=== PATIENT | female | born 1945 | race Caucasian/White ===

== ENCOUNTER 2023-09-30 11:11 | Emergency (ER) | payer OTHER, SELFPAY ==
[2023-09-30 11:14] VITALS: BP 198/113
[2023-09-30 11:36] VITALS: BP 170/86
--- NOTE | 2023-09-30 13:02 | ED.GENMED ---
History of Present Illness
General
Chief Complaint: Dental Problem
Source: patient
Exam Limitations: none
Time Seen by Provider: 09/30/23 11:36
Nursing documentation reviewed up to this point in time: agreed with
Travel History
Have you had any contact with someone who has COVID-19?: No
Do you have any symptoms of coronavirus? Fever > 100 degrees, chills, cough, shortness of breath, sore throat, loss of taste or smell, muscle aches, or headache?: No
History of Present Illness
History of Present Illness:
78-year-old female with no past medical history has a firm mildly tender lump at the base of her lower left tooth #22. Noticed it 8 days ago. 'Not too painful,' has been able to eat without pain. Saw dentist yesterday and referred to dental surgeon
as xrays show no dental infection per pt. She has appt with dental surgeon in 3 days. she is here because the dentist 'scared me to ' and told me to come to ER if it gets bigger, although she denies any of these: she is afraid it will grow
while she's sleeping and spread to other areas of her mouth and affect her breathing and swallowing.
Denies fever.
Past History
Past History
ED Past Medical History: None
ED Past Surgical History: None
Social History
Tobacco: Non-smoker
Alcohol: None
Personal:
Living: with family
Review of Systems
Review of Systems
Allergies reviewed?: Yes
All Other Systems: ROS reviewed and negative except as documented in HPI and ROS
Constitutional: Denies fever
EENT: Reports other (lump left lower gum)
Musculoskeletal: Denies neck pain
Phy Exam
Physical Exam
Physical Exam:
GENERAL: No acute distress. A&Ox3.
CONSTITUTIONAL: Afebrile.
Neck: Supple, no lymphadenopathy
ENMT: moist mucus membranes, Pharynx nl, local small pea sized minimally tender firm, non mobile lump in outer gum below tooth #22 L lower jaw. No abscess. No surrounding swelling. Full ROM of jaw. No other intraoral lesions
RESPIRATORY: Regular respirations, nonlabored, lungs clear.
CARDIOVASCULAR: Regular rate and rhythm, no murmurs, no rubs.
MUSCULOSKELETAL: Moves with ease. Well perfused.
SKIN: Warm, dry, pink
PSYCH: Normal mood and affect. Well kept, interactive and appropriate
NEUROLOGIC: Awake, alert and oriented. No focal neurological deficits
Course
Vital Signs
Initial and Last Documented VS:
Initial Vital Signs
Temp Pulse Resp BP Pulse Ox
97.8 F 84 18 198/113 98
09/30/23 11:14 09/30/23 11:14 09/30/23 11:14 09/30/23 11:14 09/30/23 11:14
Last Documented Vital Signs
Temp Pulse Resp BP Pulse Ox
97.8 F 80 18 172/86 98
09/30/23 11:14 09/30/23 13:25 09/30/23 13:25 09/30/23 13:25 09/30/23 13:25
MDM/Problems Addressed
Differential Diagnosis Includes:
cyst gum, abscess
MDM/Problems Addressed:
78-year-old female with no past medical history has a firm mildly tender lump at the base of her lower left tooth #22. Noticed it 8 days ago. 'Not too painful,' has been able to eat without pain. Saw dentist yesterday and referred to dental surgeon
as xrays show no dental infection per pt. She has appt with dental surgeon in 3 days. she is here because the dentist 'scared me to ' and told me to come to ER if it gets bigger, although she denies any of these: she is afraid it will grow
while she's sleeping and spread to other areas of her mouth and affect her breathing and swallowing.
Denies fever.
Pt has local small pea sized minimally tender firm, non mobile lump in outer gum below tooth #22 L lower jaw. Consistent with a cyst, no fluctuance or significant pain, not consistent with abscess
She will f/u with oral surgeon, most likely needs to be excised.
Reassured pt this is LOCALIZED and no chance of spreading, causing obstruction to breathing, she felt much better after discussion
*Critical Care Note
Total Time (30-74mins, 75-104mins- exclusive of procedures): Not Applicable
ED Attending Note
-
Portions of this chart may have been created with voice recognition software.� Occasional wrong word or��sound alike� substitutions may have occurred due to the inherent limitations of voice recognition software.
Discharge Plan
Departure
Patient Disposition: Home (Routine Discharge)
Date of Disposition: 09/30/23
Time of Disposition: 13:10
Patient with high blood pressure during this ER visit?: No
Condition: Good
Discharge Problem:
Gingival cyst
Instructions: Epidermal Cyst
Referrals:
Your, dental surgeon [Other] - Keep scheduled appt
Joseph Xie, DO [Family Provider] -
Activity Restrictions/Additional Instructions:
As we discussed, there is nothing worrisome in your exam today.
The area is localized and should not spread to any other areas. This may be a cyst that has to be surgically removed.
Keep your appointment with your dental surgeon this coming week.
Interventions
Interventions:
*Risk Screen - Suicide Last Done: 09/30/23 11:14
*General Assessment Last Done: 09/30/23 11:14
*Neglect/Abuse Screening Last Done: 09/30/23 11:14
ED- Fall Risk Assessment Last Done: 09/30/23 11:45
*ED COVID-19 Vaccine History Last Done: 09/30/23 11:34
*Nursing Disposition Last Done: 09/30/23 13:25
Discharge Date and Time
Discharge Date/Time: 09/30/23 13:25
Print Language: URDU
--- NOTE | 2023-09-30 13:20 | EDRN ---
Reviewed discharge instructions with patient. Verbalized understanding. Ambulated with steady gait to the lobby.
[2023-09-30 13:25] VITALS: BP 172/86
[2023-09-30 13:56] VITALS: BP 172/86
== END 2023-09-30 13:25 | disposition home or self-care (01) ==
LOC: EMR 11:11
PROVIDERS: EMERGENCY PHYSICIAN Emergency Medicine; FAMILY PHYSICIAN Family Medicine
DX: K09.9 Cyst of oral region, unspecified (principal)
CPT/HCPCS: 99282

== ENCOUNTER → 2024-01-29 06:26 | Day surgery (SDC) | payer OTHER, SELFPAY | LOC: GI 06:26 | PROVIDERS: ATTENDING PHYSICIAN Internal Medicine | DX: Z12.11 Encounter for screening for malignant neoplasm of colon (principal); K57.30 Diverticulosis of large intestine without perforation or abscess without bleeding; K63.89 Other specified diseases of intestine; Z86.010 Personal history of colon polyps | CPT/HCPCS: G0105 ==

== ENCOUNTER → 2024-05-01 14:48 | Outpatient (REF) | payer OTHER, SELFPAY | LOC: HWWDC 14:48 | PROVIDERS: ATTENDING PHYSICIAN Obstetrics & Gynecology; FAMILY PHYSICIAN Family Medicine | DX: Z12.31 Encounter for screening mammogram for malignant neoplasm of breast (principal) | CPT/HCPCS: 77063; 77067 ==

== ENCOUNTER 2024-08-19 22:12 | Inpatient (IN) | payer OTHER, SELFPAY ==
[2024-08-19 16:54] VITALS: BP 188/105
[2024-08-19 17:17] LABS: % Basophils 0.5 % (0-2); % Eosinophils 1.4 % (0-6); % Immature Granulocytes 0.6 % (0-0.5); % Neutrophils 74.5 % (42.2-75.2); Absolute Eosinophils 0.1 10^3/uL (0-0.7); Absolute Immature Granulocytes 0.1 10^3/uL (0-0.05); Absolute Lymphocytes 1.3 10^3/uL (1.2-3.4); Absolute Monocytes 0.7 10^3/uL (0.1-0.6); Absolute Neutrophils 6.2 10^3/uL (1.4-6.5); Hematocrit 39.8 % (37.0-47.0); Hemoglobin 13.7 g/dL (12.0-16.0); Mean Corp Hgb Conc. 34.4 g/dL (33.0-37.0); Mean Corpuscular Hgb 29.5 pg (27.0-31.0); Mean Corpuscular Volume 85.8 fL (81.0-99.0); Mean Platelet Volume 8.7 fL (7.4-10.4); Nucleated Red Blood Cells % 0 %; Platelet Count 255 10^3/uL (130-400); Red Blood Cell Count 4.64 10^6/uL (4.20-5.40); Red Cell Dist. Width 13.7 % (11.5-14.5); White Blood Cell Count 8.3 10^3/uL (4.8-10.8)
[2024-08-19 17:37] LABS: ALT (SGPT) 27 U/L (0-35); AST (SGOT) 30 U/L (14-36); Albumin 4.7 g/dl (3.5-5.0); Alkaline Phosphatase 108 U/L (38-126); Blood Urea Nitrogen 16 mg/dl (7-17); Calcium 10.4 mg/dl (8.4-10.2); Carbon Dioxide 25 mmol/L (22-30); Chloride 98 mmol/L (98-107); Glucose 100 mg/dl (70-99); Potassium 4.4 mmol/L (3.5-5.1); Sodium 134 mmol/L (135-145); Total Bilirubin 1.2 mg/dl (0.2-1.3); Total Protein 7.4 g/dl (6.3-8.2); eGFR > 60.00
[2024-08-19 17:50] LABS: NT-proBNP 638 pg/ml; Troponin I 0.149 ng/ml
[2024-08-19 18:22] VITALS: BP 196/77
[2024-08-19 19:00] VITALS: BP 196/90
--- NOTE | 2024-08-19 19:10 | ED.GENMED ---
History of Present Illness
General
Chief Complaint: Cardiac Symptoms
Source: patient and family
Time Seen by Provider: 08/19/24 18:06
History of Present Illness
History of Present Illness:
This is 79-year-old female presents with dyspnea on exertion has been ongoing for about 6 weeks. The patient states that she has had progressive shortness of breath worse over the last few days. Went to see her PCP was not happy with the way her
EKG looked. Patient is somewhat irritated that she is here as she states she feels fine at rest. She specifically denies chest pain. No leg swelling. No fevers. No cough. No recent travel. Daughter however does state that they had a drive to
febrile 6 hours in June and in July. Patient is otherwise healthy
Past History
Past History
ED Past Medical History: None
ED Past Surgical History: None
Social History
Tobacco: Non-smoker
Alcohol: None
Personal:
Living: with family
Phy Exam
Physical Exam
Physical Exam:
CONSTITUTIONAL Patient alert and oriented to person, place and time. Well-appearing. Vital signs reviewed.
HEAD atraumatic, normocephalic.
EYES eyelids normal to inspection, Extraocular muscles intact, Conjunctiva normal, Sclera normal.
NECK normal range of motion, Trachea midline, no jugular venous distention.
RESPIRATORY CHEST No respiratory distress noted, Chest expansion equal, Bilateral breath sounds clear.
CARDIOVASCULAR regular rate and rhythm, Heart sounds normal.
ABDOMEN abdomen nontender, Bowel sounds normal. No distention.
BACK normal inspection, no obvious deformities
UPPER EXTREMITY range of motion normal, Motor strength normal, no cyanosis, no edema.
LOWER EXTREMITY range of motion normal, Motor strength normal, no cyanosis, no edema.
NEURO Speech normal, No focal motor deficits, Iker coma scale 15, Memory normal, Cranial Nerves intact to screening exam.
SKIN skin warm, dry, and normal in color.
Course
Orders/Labs/Results
Orders:
Orders
08/19/24 16:40
EKG [Electrocardiogram (*1)] Urgent
Reason for Study: Abnormal EKG
EKG- Treatment ONCE
08/19/24 17:05
Complete Blood Count/With Diff Urgent
Comprehensive Metabolic Panel Urgent
NT-proBNP Urgent
Troponin I Urgent
08/19/24 18:17
CT Chest PE Study Urgent
Comment:
Reason For Exam: dyspnea, elevated trop
08/19/24 19:18
PTT Urgent
Comment: Obtain baseline before beginning heparin infusion if not already collected
Heparin 6,000 units IV NOW STA
Pharmacy Request to Place See Dose Instructions PO NOW STA
Discontinue all Active Warfarin orders?: Yes
Nursing to Place Non Medication Order As Directed
Physician Order: PTT 6 hours after initial start of Heparin infusion
08/19/24 19:30
Heparin INFUSION titrate rate - CONTINUOUS Heparin 86010 Units/250 ml 25,000 units in 250 ml IV PER PROTOCOL
Weight to be used for heparin protocol in kilograms (kg):: 75.438
Protocol:: DVT/PE
PTT Goal Range to be used:: PTT 73 to 111 seconds
Order type:: Initial
INITIAL Infusion Dose (UNITS/KG/hr) & then follow protocol:: 18 units/kg/hr
Infusion Dose in UNITS/hr & then follow protocol (UNITS/hr):: 1,400
INFUSION RATE in mL/hr & then follow protocol (mL/hr):: 14
For DVT/PE algorithm, re-bolus for low PTT?: Yes
PTT less than or equal to 64 seconds:: Re-bolus 80 units/kg (max 10,000units). Increase by 300 units/hr
(+ 3mL/hr)
PTT 64.1 to 72.9 seconds:: Re-bolus 40 units/kg (max 5,000 units). Increase by 200 units/hr
(+ 2mL/hr)
PTT 73 to 111 seconds:: Target Range. No change in rate.
PTT 111.1 to 130.9 seconds:: Decrease rate by 200 units/hr (- 2 mL/hr)
PTT 131 to 199.9 seconds:: HOLD for 1 hr. Then decrease by 200 units/hr (- 2mL/hr)
PTT greater than or equal to 200 seconds:: HOLD for 2 hrs & Notify Provider. Then decrease by 300 units/hr
(- 3mL/hr)
Lab follow-up:: Each change, PTT q6h until 2 consecutive are therapeutic. Then
PTT daily.
08/19/24 20:[address] See Dose Instructions IV DIRECTED
Abnormal Lab Results
08/19/24
17:05
Abs Immat Gran (auto) 0.1 H 10^3/uL
(0-0.05)
Absolute Monos (auto) 0.7 H 10^3/uL
(0.1-0.6)
Immature Gran % 0.6 H %
(0-0.5)
Lymphocytes % 15.0 L %
(20.5-51.1)
Sodium 134 L mmol/L
(135-145)
Glucose 100 H mg/dl
(70-99)
Calcium 10.4 H mg/dl
(8.4-10.2)
Troponin I 0.149 H* ng/ml
08/19/24 17:05
08/19/24 17:05
Vital Signs
Initial and Last Documented VS:
Initial Vital Signs
Temp Pulse Resp BP Pulse Ox
98.4 F 93 18 188/105 97
08/19/24 16:54 08/19/24 16:54 08/19/24 16:54 08/19/24 16:54 08/19/24 16:54
Last Documented Vital Signs
Temp Pulse Resp BP Pulse Ox
98.4 F 89 25 196/77 97
08/19/24 16:54 08/19/24 18:30 08/19/24 18:30 08/19/24 18:22 08/19/24 16:54
MDM/Problems Addressed
Differential Diagnosis Includes:
Acute coronary syndrome, pulmonary embolism, pericardial effusion, pneumothorax, pneumonia, CHF, valvulopathy
MDM/Problems Addressed:
Bilateral pulmonary emboli with right heart strain
*Radiology
Radiology exam reviewed: preliminary read by ED provider (Bilateral PE)
*Pulse Oximetry
Patient hypoxic: no
*EKG
Interpreted by ED Provider?: Yes
Interpretation: abnormal
Rate: normal
Rhythm: sinus
QRS Pattern: normal QRS
Ischemia: other (S1, Q3, T3)
*Sports Agent Interpretation
Rate: normal
Interpretation: normal
Rhythm: sinus
*Critical Care Note
Total Time (30-74mins, 75-104mins- exclusive of procedures): 40 minutes
Data Reviewed
Source: patient and family
Patient Management
Discussion with other providers: Hospitalist and Radiologist (Case discussed with radiology who agrees with bilateral PEs)
Escalation/DeEscalation of care consider admission/obs:
79-year-old female with progressive dyspnea on exertion. Elevated troponin. Given EKG and elevated troponin CTA was ordered which does confirm bilateral pulmonary emboli. Currently very stable. The patient is happy and smiling in the room with a
heart rate of 96 and a pulse ox that is normal. Blood pressure is slightly hypertensive but otherwise unremarkable. Admit. Heparin drip.
ED Attending Note
-
Portions of this chart may have been created with voice recognition software.� Occasional wrong word or��sound alike� substitutions may have occurred due to the inherent limitations of voice recognition software.
Discharge Plan
Departure
Patient Disposition: Admit
Date of Disposition: 08/19/24
Time of Disposition: 19:10
Admit to: Telemetry
Presentation/result/management discussed w/ accepting MD/DO: Hospitalist
Discharge Problem:
Bilateral pulmonary embolism, right heart strain
Referrals:
Joseph Xie, [Family Provider] -
Interventions
Interventions:
*Risk Screen - Suicide Last Done: 08/19/24 18:48
*Neglect/Abuse Screening Last Done: 08/19/24 18:48
*ED COVID-19 Vaccine History Last Done: 08/19/24 18:48
ED- Pulmonary Assessment Last Done: 08/19/24 18:25
ED- Cardiac Assessment Last Done: 08/19/24 18:25
Discharge Date and Time
Print Language: KINYARWANDA
[2024-08-19 19:16] VITALS: BMI 27.7
[2024-08-19 19:45] LABS: APTT 24.1 Sec (23.4-35.0)
[2024-08-19] MEDS: HEPARIN 6000 UNITS IV (19:45)
[2024-08-19] MEDS: HEPARIN 25000 UNITS/250 ML IV (19:46)
--- NOTE | 2024-08-19 19:50 | HPS.HSE ---
Family Physician
-
Family Physician: Joseph Xie
Chief Complaint
-
Dyspnea on Exertion
History of Present Illness
Patient is a 71-year-old female past medical history of hypertension, and hyperlipidemia who presents with dyspnea on exertion. Patient reports increasing dyspnea on exertion for the last 4 to 6 weeks. She notes shortness of breath while walking
up the stairs. She notes that initially resolved quickly with rest. However, today symptoms were much worse. She contacted her PCP who instructed her to come to the emergency department for evaluation. Patient's workup was positive for bilateral
pulmonary emboli. She denies chest pain, palpitations or dizziness. She notes a few long car rides over the last few months with multiple 5-hour trips to [place].
Medical History
Past Medical History
Past Medical History: Reports Other
Additional Past Medical History:
Essential Hypertension
Hyperlipidemia
Past Surgical History: Reports None
Social History
Tobacco: Non-smoker
Alcohol: Occasional
Family History
Family History: Not pertinent
Allergies / Home Medications
Allergies reflects when Allergies were last updated in [facility].
Home Medications with original date entered in [facility]
Allergy/Medication List:
Allergies
Allergy/AdvReac Type Severity Reaction Status Date / Time
No Known Allergies Allergy Verified 09/30/23 11:18
Home Medications
aspirin 81 mg chewable tablet 81 mg PO MOWEFR 08/19/24
lisinopril 20 mg tablet 20 mg PO DAILY 08/19/24
rosuvastatin 10 mg tablet 10 mg PO DAILY 08/19/24
therapeutic multivitamin 1 tab PO DAILY 08/19/24
Review of Systems
-
A 12 point ROS was completed and negative except as noted: Yes
Constitutional: Denies Fever or Chills
Respiratory: Denies Cough or Trouble Breathing
Cardiac: Denies Chest Pain or Palpitations
Abdomen/GI: Denies Abdominal Pain, Nausea, Vomiting or Diarrhea
Physical Exam
Vital Signs
Vital Signs
Temp Pulse Resp BP Pulse Ox
98.4 F 89 25 196/77 97
08/19/24 16:54 08/19/24 18:30 08/19/24 18:30 08/19/24 18:22 08/19/24 16:54
Physical Exam
General: Comfortable and Conversant
HEENT: Anicteric and Moist mucous membranes
Respiratory: Clear and Non Labored Respirations
Cardiac: S1/S2 and Regular Rhythm; No Tachycardia
GI: Soft and Non Tender
Rectal: Deferred by Provider
Genito-urinary: No Maurice
Musculoskeletal: No Clubbing, No Cyanosis and Other (Trace edema right lower extremity)
Skin: Warm and Dry
Neuro: Awake, Alert, Oriented and Nonfocal/grossly intact
Psych: Calm
Laboratory Results
-
08/19/24 17:05
08/19/24 17:05
Laboratory Results
APTT 24.1 Sec (23.4-35.0) 08/19/24 19:21
Total Bilirubin 1.2 mg/dl (0.2-1.3) 08/19/24 17:05
AST 30 U/L (14-36) 08/19/24 17:05
ALT 27 U/L (0-35) 08/19/24 17:05
Alkaline Phosphatase 108 U/L (38-126) 08/19/24 17:05
Troponin I 0.149 ng/ml H* 08/19/24 17:05
Data Reviewed
-
CT Scan: Report Reviewed by me
Lab Data: Labs Reviewed by me
Impression/Plan
-
Sub-Massive Bilateral Pulmonary Emboli
-Consult Pulmonary
-Check Echo
-Check lower extremity venous ultrasound
-Continue heparin drip
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
-Continue to trend troponin
Essential Hypertension, Uncontrolled
-Continue lisinopril
-Add hydralazine PRN
Hyperlipidemia
-Continue rosuvastatin
Code Status: Full Code
[2024-08-19 20:00] VITALS: BP 192/92
--- NOTE | 2024-08-19 20:11 | W.PN.UPDATE ---
Update Note
Progress Note Update
Patient seen in conjunction with ANIMAL PATHOLOGIST. I do depends on history and physical. I concur with assessment and plan.
This is a 79-year-old female with past medical history that and can fall hypertension hyperlipidemia will also takes daily aspirin, presenting to the emergency department with worsening dyspnea on exertion over the last few months. She saw PMD
today who did an x-ray and was concerned about the finding Maximen as to the Emergency Department given ongoing symptoms of dyspnea on exertion.
Patient is unclear about stated that this man exertion has been going on for few months. She reports no recent hospitalizations or surgical procedures or immobilization. She reported that she had a knee injury few weeks ago and had a brace but did
not use crutches and was mobile. She walks 10,000 steps every day she stated. She denies having any chest pain. She denies feeling dizzy or lightheaded.
Patient reports no history of malignancy. She reported she had a colonoscopy about a year ago which was clean. She has had very recent mammogram which was unremarkable. She is a non-smoker. She has no family history of venous thromboembolism or
clotting disorders.
She had 2 prolonged drives in July lasting about 5 hours each. She denied any ankle swelling since then. She denies any calf pain. No recent URI symptoms. No known COVID infection.
In the emergency department she was hypertensive to 190/70 with a pulse of 89 satting 97% on room air. CBC unremarkable chemistries unremarkable. She had a CT angio of the chest which shows bilateral PEs with right heart strain. Troponin was
0.14, BNP was 630.
She is otherwise well-appearing and in no acute distress.
Unprovoked PE -at this time we do not have any clear indication for provoked PE. She does have significant clot burden with right heart strain and elevated troponin consistent with a submassive PE.
-Admit to IMU
-Patient started on heparin drip
-Ultrasound of the lower extremities
-Unlikely COVID but we will check
-Echocardiogram
-Pulmonary critical care consulted and notified
-Duration of anticoagulation to be determined
-Continue usual medications, as needed hydralazine for severe hypertension which I think is secondary to whitecoat phenomenon and hospitalization.
Full code
[2024-08-19 22:00] VITALS: BP 177/97
[2024-08-19 23:00] VITALS: BP 161/75
[2024-08-20] VITALS (12 sets, daily range): BP systolic 133–173; BP diastolic 74–96; BMI 29.8
[2024-08-20 00:43] LABS: Troponin I 0.098 ng/ml
--- NOTE | 2024-08-20 01:15 | PTCARENOTE ---
Received pt from the ED. Pt ambulated steadily and independently from stretcher to hospital bed. AAOx3, offers no complaints, denies pain. NSR on the monitor. SpO2 96% on RA, lungs sound clear. Pt reports mild subjective ROSA. +bowel sounds,
continent B/B. Remainder of assessment as documented. Heparin gtt infusing @ 1400units/hr per order, see MAR. Pt oriented to unit and POC for the evening. Resting comfortably in bed, call preciado within reach.
[2024-08-20 02:39] LABS: APTT > 200 Sec (23.4-35.0)
[2024-08-20 06:29] LABS: Hematocrit 37.7 % (37.0-47.0); Hemoglobin 12.9 g/dL (12.0-16.0); Mean Corp Hgb Conc. 34.2 g/dL (33.0-37.0); Mean Corpuscular Hgb 29.2 pg (27.0-31.0); Mean Corpuscular Volume 85.3 fL (81.0-99.0); Mean Platelet Volume 9.3 fL (7.4-10.4); Platelet Count 249 10^3/uL (130-400); Red Blood Cell Count 4.42 10^6/uL (4.20-5.40); Red Cell Dist. Width 13.7 % (11.5-14.5); White Blood Cell Count 6.6 10^3/uL (4.8-10.8)
[2024-08-20 06:53] LABS: Troponin I 0.059 ng/ml
[2024-08-20 07:03] LABS: Blood Urea Nitrogen 12 mg/dl (7-17); Calcium 9.7 mg/dl (8.4-10.2); Carbon Dioxide 23 mmol/L (22-30); Chloride 101 mmol/L (98-107); Estimated Creatinine Clearance 65 ml/min; Glucose 86 mg/dl (70-99); Potassium 4.2 mmol/L (3.5-5.1); Sodium 132 mmol/L (135-145); eGFR > 60.00
--- NOTE | 2024-08-20 07:16 | CON.PUL ---
Consultation
Consultation Request
Date/Time Consultation Requested: 08/20/24
Date/Time Consultation Performed: 08/20/24
Performing Provider: Karen
Reason for Consultation: PE
Medical History
-
History of Present Illness:
Patient is a 79-year-old female with previous history of hypertension, hyperlipidemia presenting to ER with worsening shortness of breath over the past few months. She was sent by her primary care physician to the ER. CTA demonstrating acute
bilateral PE with right heart strain. She has no prior history of blood clots. She did have 2 recent prolonged drives in July lasting about 5 hours each. She did not have any resultant lower extremity edema or pain. In the ER she was notably
hypertensive 190/70, pulse ox saturating 97% on room air. Admitted to telemetry and placed on heparin drip.
Denies any known history of lung disease, never had VTE in past, denies family history.
No triggering event, prior. Last long car ride was >6 weeks ago. No surgeries.
Walks >10k steps per day, very active.
Past Medical History
Past Medical History: Other (see list below)
Social History
Tobacco: Non-smoker
Alcohol: None
Drug: None
Family History
Family History: Reviewed & Not Pertinent
Allergies / Home Medications
Allergies
Allergy/AdvReac Type Severity Reaction Status Date / Time
No Known Allergies Allergy Verified 09/30/23 11:18
Home Medications
�Medication �Instructions �Recorded �Confirmed �Last Taken �Type
aspirin 81 mg chewable tablet 81 mg PO MOWEFR 08/19/24 08/19/24 08/16/24 History
lisinopril 20 mg tablet 20 mg PO DAILY 08/19/24 08/19/24 08/19/24 History
rosuvastatin 10 mg tablet 10 mg PO DAILY 08/19/24 08/19/24 08/19/24 History
therapeutic multivitamin 1 tab PO DAILY 08/19/24 08/19/24 08/19/24 History
Review of Systems
-
History Source: Patient
All other systems: Negative unless noted
Vitals / Labs / Diagnostic Testing
Vital Signs
Temp Pulse Resp BP Pulse Ox
98.7 F 75 16 166/84 92
08/20/24 03:00 08/20/24 06:00 08/20/24 06:00 08/20/24 06:00 08/20/24 05:30
Lab Data
08/20/24 05:47
08/20/24 05:47
Laboratory Results
08/19/24 08/20/24
19:21 02:02
APTT 24.1 > 200 H*
Diagnostic Testing:
Physical Exam
-
HEENT: Normocephalic, Anicteric and Moist Mucous Membranes
Cardiovascular: S1/S2 and Regular Rhythm
Respiratory: Clear and Non-Labored Respirations
GI: Soft, Non Distended and Non Tender
Neurology: Awake, Alert, Oriented and No Motor Deficits
Skin: Warm, Dry and Good Color
General: Comfortable and Other (NAD)
Assessment
-
Patient is a 79-year-old female with previous history of hypertension, hyperlipidemia presenting to ER with worsening shortness of breath over the past few months. She was sent by her primary care physician to the ER. CTA demonstrating acute
bilateral PE with right heart strain. She has no prior history of blood clots. She did have 2 recent prolonged drives in July lasting about 5 hours each. She did not have any resultant lower extremity edema or pain. In the ER she was notably
hypertensive 190/70, pulse ox saturating 97% on room air. Admitted to telemetry and placed on heparin drip.
Acute bilateral PE, submassive
RHS, elevated trops
Shortness of breath
Hypertensive urgency
Conditions present prior to admission
Other hyperlipidemia
Overweight (BMI 25.0-29.9)
Primary osteoarthritis of left knee
Essential (primary) hypertension
Plan
No oxygen was needed on admission, currently saturating >90% on RA
Denies any known history of lung disease, never had VTE in past, denies family history.
No triggering event, prior. Last long car ride was >6 weeks ago. No surgeries.
Walks >10k steps per day, very active.
CXR/CT obtained indicating acute BL PE with elevated trops
Evidence of RHS, high burden
Other imaging reviewed--LE US negative
On IV heparin, transition to OAC pending approval
Elevated trops
ECHO results pending
BP Elevated as well--on lisinopril at home
Consider cardiac evaluation for BP management and cardiac referral as OP
Will likely need genetic testing as OP as this appears unprovoked
Discussed this in detail
Will need outpatient pulmonary evaluation in our office for PFTs and 6MWT
Reviewed with patient
We will follow
Diagnostic Data
Chest X-Ray:
CT Scan: CTA 08/19/24- Examination is positive for pulmonary embolism. There is embolus in the distal aspect of the right main pulmonary artery, extending into the right upper lobe, right lower lobe, and right middle lobe segmental and subsegmental
branches. Embolus is present within the left lower lobe pulmonary artery with extension into the segmental and subsegmental branches.
There is no evidence for saddle embolus at the bifurcation of the main pulmonary artery. There is evidence for right heart strain with enlargement of the right ventricle compared to the left ventricle and straightening of the interventricular
septum. The right atrium also appears enlarged.
LE US 08/19/24- No evidence of deep venous thrombosis bilaterally.
Echo:
PFT's:
Reports and relevant images were personally reviewed.
Total time spent on this consultation __75__ minutes which includes review of history, physical exam, medications, laboratory data, personal review of imaging, extensive review of outpatient records, discussion with care team and respiratory therapy.
[2024-08-20 07:44] LABS: Hepatitis C Antibody Negative (Negative)
--- NOTE | 2024-08-20 08:15 | PTCARENOTE ---
Assumed care of pt at 0715 following shift report. Pt awake and resting quietly in bed. Denies c/o CP or SOB. POx 97% on RA. Physical assessment completed as documented. Heparin gtt continues at 1100 units/hr. Pt OOB w/ supervision to BR to void and
then to chair. Tolerated increased activity w/o complaint or noted dyspnea. Call ozzy w/in pt reach and safe environment maintained.
[2024-08-20] MEDS: ZESTRIL 20 MG PO (08:46)
[2024-08-20] MEDS: CRESTOR 10 MG PO (08:46)
--- NOTE | 2024-08-20 11:01 | W.PN.HOSP.TC ---
Today's Communication/Plan
-
see AP
Assessment / Plan
Assessment / Plan
71-year-old female past medical history of hypertension and hyperlipidemia who presented with dyspnea on exertion. Patient reports increasing dyspnea on exertion for the last 4 to 6 weeks. She notes shortness of breath while walking up the stairs.
She notes that initially resolved quickly with rest. However, on DOA symptoms were much worse. She contacted her PCP who instructed her to come to the emergency department for evaluation. Patient's workup was positive for bilateral pulmonary
emboli. She denies chest pain, palpitations or dizziness. She notes a few long car rides over the last few months with multiple 5-hour trips to [place].
A/P:
# Sub-massive Bilateral Pulmonary Emboli, likely provoked in setting of long car ride
# Elevated troponin 2/2 Non-ischemic myocardial injury
Evidence for right heart strain on CT, can check follow up Echo
No oxygen was needed on admission, check walking pulse Ox
BL LE US neg for deep venous thrombosis bilaterally.
Appreciate Pulmonary input
Can switch heparin drip to Eliquis
# Essential Hypertension, Uncontrolled
Continue lisinopril
Add hydralazine PRN
# Hyperlipidemia
Continue rosuvastatin
Code Status: Full Code
DVT ppx: heparin drip to Eliquis
DW daughter and at bedside
Anticipated Discharge: Within 24 hours
Subjective/Interval History
-
Date of Service: August 20, 2024
Objective Data
-
Labs:
Laboratory Results
08/20/24 08/20/24 08/20/24
02:02 05:47 10:42
WBC 6.6
Hgb 12.9
Hct 37.7
Plt Count 249
APTT > 200 H* Pending
Sodium 132 L
Potassium 4.2
Chloride 101
Carbon Dioxide 23
BUN 12
Creatinine 0.7
Glucose 86
Calcium 9.7
Vital Signs:
Vital Signs
Temp Pulse Resp BP Pulse Ox
36.7 C 85 17 151/90 96
08/20/24 07:31 08/20/24 10:00 08/20/24 10:00 08/20/24 10:00 08/20/24 09:00
I&O
08/19/24 08/20/24 08/21/24
06:59 06:59 06:59
Intake Total 480 / 480
Balance 480 / 480
Review of Systems
-
All other systems: Reviewed and negative
Respiratory: Denies Trouble Breathing
Physical Exam
-
General: Well Developed, Well Nourished, No Apparent Distress, Comfortable and Conversant; Negative Respiratory Distress
HEENT: Normocephalic, Atraumatic, Nose Appears Normal and Ears Appear Normal; Negative Oxygen
Respiratory: Clear to Auscultation and Non Labored Respirations; Negative Crackles or Accessory Resp Muscle Use
Cardiac: Regular Rhythm and S1/S2
GI: Soft, Nontender, Nondistended and Normal Bowel Sounds
Skin: Warm and Dry
Neuro: Awake, Alert, Oriented and AO x 3
Psych: Calm and Intact Judgement/Insight
Data Reviewed
-
CT Scan: Report Reviewed by me, Discussed with Patient and Discussed with Family
Ultrasound: Report Reviewed by me, Discussed with Patient and Discussed with Family
Labs: Labs Reviewed by me
[2024-08-20 11:08] LABS: APTT 75.9 Sec (23.4-35.0)
[2024-08-20] MEDS: ELIQUIS 10 MG PO ×2 (12:09→20:49)
--- NOTE | 2024-08-20 12:23 | PTCARENOTE ---
Heparin gtt d/c'ed at 1205 per order and Eliquis given. Pt continues to sit OOB in chair, and daughter visiting in room. No additional changes from previous assessment findings.
--- NOTE | 2024-08-20 12:56 | CM ---
CM following re: discharge planning.
Reviewed pt's chart, met with pt. Pt's spouse and daughter at bedside.
Pt is a 79 year old female, admitted with primary dx of PE.
Pt reports she lives with in an [address] townhouse [place], has 2 supportive children. 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 No DME, VN or SNF history.
D/C plan: [facility]
Pharmacy: [facility]
D/C plan: home with anticipated no needs. Family to transport at discharge.
CM will follow with discharge plan updates as hospitalization progresses
--- NOTE | 2024-08-20 16:33 | PTCARENOTE ---
Pt continues to rest quietly w/o changes noted or new complaints received. Pt ambulated in arias w/ Resp therapist and tolerated increased activity w/o complication.
--- NOTE | 2024-08-20 16:43 | PTCARENOTE ---
Report called to 'Elaina HAMMER'. Pt to transfer to [id number] via . Pt's personal belongings sent w/ pt. No changes from previous assessment findings or new complaints received.
--- NOTE | 2024-08-20 17:30 | PTCARENOTE ---
Received pt from IMU, ambulated to the bed with minimal assist. No c/o SOB. Remains on RA. POX 98%. Will continue to monitor.
--- NOTE | 2024-08-21 02:45 | DOWNTIME ---
There was a [employer] Downtime on 08/21/2024 from 0100 to 08/21/2023 at 0235 . Downtime documentation of patient's care, including medication administrations, has been reconciled in the electronic record per guidelines. Refer to the
patient's paper chart under the miscellaneous tab to see printed paper medication records and downtime forms.
[2024-08-21 07:11] VITALS: BP 165/89
[2024-08-21 08:01] LABS: Hematocrit 38.7 % (37.0-47.0); Hemoglobin 13.5 g/dL (12.0-16.0); Mean Corp Hgb Conc. 34.9 g/dL (33.0-37.0); Mean Corpuscular Hgb 29.3 pg (27.0-31.0); Mean Corpuscular Volume 84.1 fL (81.0-99.0); Mean Platelet Volume 8.6 fL (7.4-10.4); Platelet Count 228 10^3/uL (130-400); Red Cell Dist. Width 13.6 % (11.5-14.5); White Blood Cell Count 6.4 10^3/uL (4.8-10.8)
[2024-08-21] MEDS: ZESTRIL 20 MG PO (08:12)
[2024-08-21] MEDS: ELIQUIS 10 MG PO (08:12)
[2024-08-21] MEDS: CRESTOR 10 MG PO (08:12)
[2024-08-21 08:49] LABS: Blood Urea Nitrogen 16 mg/dl (7-17); Calcium 9.7 mg/dl (8.4-10.2); Carbon Dioxide 24 mmol/L (22-30); Chloride 97 mmol/L (98-107); Estimated Creatinine Clearance 57 ml/min; Glucose 96 mg/dl (70-99); Potassium 4.4 mmol/L (3.5-5.1); Sodium 132 mmol/L (135-145); eGFR > 60.00
--- NOTE | 2024-08-21 09:20 | PN.CDI ---
CDI
- -
CDI:
Physician Documentation Request
Admit Date: 08/19/24 22:12
Dear Doctor Can,
Clinical Indicators:
Patient admitted with submassive bilateral pulmonary emboli.
08/[address], 'There is evidence for right heart strain with enlargement of the right ventricle compared to the left ventricle and straightening of the interventricular septum. The right atrium also appears enlarged.'
Based on the above, could you clarify in the progress notes, the appropriate diagnosis, if significant, that supports the above abnormalities and additional evaluation, monitoring and/or treatment rendered:
Bilateral Pulmonary Emboli with acute cor pulmonale
Bilateral Pulmonary Emboli only (documentation complete)
Other
Use of terms such as suspected, likely, concern for, or probable (associated with a specific diagnosis that is being evaluated, monitored, or treated as if it exists) are acceptable and can be coded in the inpatient setting, when documented at the
time of discharge.
Thank you,
Tereza Melton RN BSN
CDI Specialist
available via tiger text
Please use your independent medical judgment in providing your response.
--- NOTE | 2024-08-21 09:36 | W.PN.HOSP.TC ---
Addendum entered and electronically signed by Mariah North MD 08/21/24 13:40:
total DC time 36 min
Addendum entered and electronically signed by Mariah North MD 08/21/24 13:07:
# Bilateral Pulmonary Emboli with right heart strain (cannot be classified as cor pulmonale)
Original Note:
Today's Communication/Plan
-
see A/P
Assessment / Plan
Assessment / Plan
71-year-old female past medical history of hypertension and hyperlipidemia who presented with dyspnea on exertion. Patient reports increasing dyspnea on exertion for the last 4 to 6 weeks. She notes shortness of breath while walking up the stairs.
She notes that initially resolved quickly with rest. However, on DOA symptoms were much worse. She contacted her PCP who instructed her to come to the emergency department for evaluation. Patient's workup was positive for bilateral pulmonary
emboli. She denies chest pain, palpitations or dizziness. She notes a few long car rides over the last few months with multiple 5-hour trips to [place].
A/P:
# Sub-massive Bilateral Pulmonary Emboli, likely provoked in setting of long car ride
# Elevated troponin 2/2 Non-ischemic myocardial injury
Evidence for right heart strain on CT, follow up Echo unrevealing
No oxygen was needed on admission, walking pulse Ox WNL
BL LE US neg for deep venous thrombosis bilaterally.
Appreciate Pulmonary input
switched heparin drip to Eliquis, high dose 10 mg BID for 7 days, then 5 mg BID for 3 months
# Essential Hypertension, Uncontrolled
Continue lisinopril
Added hydralazine PRN
# Hyperlipidemia
Continue rosuvastatin
Code Status: Full Code
DVT ppx: Eliquis
Anticipated Discharge: Today
Subjective/Interval History
-
Date of Service: August 21, 2024
Objective Data
-
Labs:
Laboratory Results
08/21/24
07:51
WBC 6.4
Hgb 13.5
Hct 38.7
Plt Count 228
Sodium 132 L
Potassium 4.4
Chloride 97 L
Carbon Dioxide 24
BUN 16
Creatinine 0.8
Glucose 96
Calcium 9.7
Vital Signs:
Vital Signs
Temp Pulse Resp BP Pulse Ox
36.6 C 76 18 165/89 98
08/21/24 07:11 08/21/24 08:12 08/21/24 07:11 08/21/24 08:12 08/21/24 07:11
I&O
08/20/24 08/21/24 08/22/24
06:59 06:59 06:59
Intake Total 480 / 480 840 / 840
Balance 480 / 480 840 / 840
Review of Systems
-
All other systems: Reviewed and negative
Respiratory: Denies Trouble Breathing
Cardiac: Denies Chest Pain
Physical Exam
-
General: Well Developed, Well Nourished, No Apparent Distress, Comfortable and Conversant; Negative Respiratory Distress
HEENT: Normocephalic, Atraumatic, Nose Appears Normal and Ears Appear Normal; Negative Oxygen
Respiratory: Clear to Auscultation and Non Labored Respirations; Negative Crackles or Accessory Resp Muscle Use
Cardiac: Regular Rhythm and S1/S2
GI: Soft, Nontender, Nondistended and Normal Bowel Sounds
Skin: Warm and Dry
Neuro: Awake, Alert, Oriented and AO x 3
Psych: Calm and Intact Judgement/Insight
Data Reviewed
-
CT Scan: Report Reviewed by me, Discussed with Patient and Discussed with Family
Ultrasound: Report Reviewed by me, Discussed with Patient and Discussed with Family
Labs: Labs Reviewed by me
--- NOTE | 2024-08-21 10:27 | W.PN.PUL.V3 ---
Today's Communication / Plan
-
Convert to oral anticoagulant for minimum of 3-6 months.
Eventual hypercoagulable workup.
Assessment discharge. Supplemental she needs.
Outpatient pulmonary follow-up
Assessment
-
Patient is a 79-year-old female with previous history of hypertension, hyperlipidemia presenting to ER with worsening shortness of breath over the past few months. She was sent by her primary care physician to the ER. CTA demonstrating acute
bilateral PE with right heart strain. She has no prior history of blood clots. She did have 2 recent prolonged drives in July lasting about 5 hours each. She did not have any resultant lower extremity edema or pain. In the ER she was notably
hypertensive 190/70, pulse ox saturating 97% on room air. Admitted to telemetry and placed on heparin drip.
Acute bilateral PE, submassive
RHS, elevated trops
Shortness of breath
Hypertensive urgency
Conditions present prior to admission:
Other hyperlipidemia
Overweight (BMI 25.0-29.9)
Primary osteoarthritis of left knee
Essential (primary) hypertension
Plan
Respiratory status improved.
Supplemental oxygen as needed-currently on room air.
Assessment ambulatory pulse oximetry prior to discharge.
Sent to spirometry.
Nebulizers if needed-currently not bronchospastic.
Chest x-ray and CT chest summarized below.
Convert IV heparin to oral anticoagulant-minimum of 3-6 months-subsequently consider hypercoagulable workup
Echocardiogram 08/20/24-60-65%, intermediate diastolic dysfunction, PA systolic 35
Consider cardiac evaluation for BP management and cardiac referral as OP
Will need outpatient pulmonary evaluation in our office for PFTs and 6MWT
Diagnostic Data
Chest X-Ray:
CT Scan: CTA 08/19/24- Examination is positive for pulmonary embolism. There is embolus in the distal aspect of the right main pulmonary artery, extending into the right upper lobe, right lower lobe, and right middle lobe segmental and subsegmental
branches. Embolus is present within the left lower lobe pulmonary artery with extension into the segmental and subsegmental branches.
There is no evidence for saddle embolus at the bifurcation of the main pulmonary artery. There is evidence for right heart strain with enlargement of the right ventricle compared to the left ventricle and straightening of the interventricular
septum. The right atrium also appears enlarged.
[facility] 08/19/24- No evidence of deep venous thrombosis bilaterally..
Subjective Data
-
Date of Service:
Date of Service: August 21, 2024
Chief Complaint: Pulmonary Follow Up, Dyspnea Follow Up and VTE Follow Up
Subjective:
Recent manic, no complaints shortness of breath, chest pain, dyspnea, pleurisy, abdominal pain
Review of Systems
General: Other ( per HPI)
Objective Data
Data Reviewed
Vital Signs / I&O:
Vital Signs
Temp Pulse Resp BP Pulse Ox
97.9 F 76 18 165/89 98
08/21/24 07:11 08/21/24 08:12 08/21/24 07:11 08/21/24 08:12 08/21/24 08:00
Intake and Output
08/20/24 08/21/24 08/22/24
06:59 06:59 06:59
Intake Total 480 / 480 840 / 840
Balance 480 / 480 840 / 840
SaO2: 98
Physical Exam
General: Respiratory Distress (n) and Comfortable
HEENT: Normocephalic, Anicteric and Moist Mucous Membranes
Cardiovascular: Regular Rhythm and Other (, no increased P2 or RV heave)
Respiratory: Wheeze (n), Crackles (n), Rhonchi (n), Non-Labored Respirations, Accessory Resp Muscle Use (n) and Stridor
GI: Soft, Non Distended and Non Tender
Neurology: Awake, Alert and No Motor Deficits
Skin: Warm, Good Color, Cyanosis (n), Jaundice (n) and Rash (n)
Labs/Micro/Reports
Lab Data
08/21/24 07:51
08/21/24 07:51
Laboratory Results
08/20/24
10:42
APTT 75.9 H
--- NOTE | 2024-08-21 10:41 | CM ---
Patient has been cleared for discharge today, plan is to home with spouse, cost of Eliquis per [facility] is $50 per month and $125 every 3 months. patient is aware and coupon provided.
Plan; Home with spouse when stable.
[2024-08-21 11:30] VITALS: BP 147/80
--- NOTE | 2024-08-21 13:22 | W.DCSUMMARY ---
Discharge Summary
Discharge Data
Date of Admission: 08/19/24
Date of Discharge: 08/21/24
-
Pending Results: No
Hospital Course
Principal Diagnosis:
Submassive Bilateral Pulmonary Emboli, likely provoked in setting of long car rides
Elevated troponin due to non-ischemic myocardial injury
Chronic Diagnoses:�
Essential Hypertension
Hyperlipidemia, on rosuvastatin
Consultations:�
Pulmonary
Procedures:�
None
Clinical course:�
This is a 71-year-old female with past medical history as stated above, who presented with shortness of breath ongoing for the past 4 to 6 weeks. She admitted to several long car rides to [place].
Problem 1:
Submassive Bilateral Pulmonary Emboli, likely provoked in setting of long car ride. This was associated with elevated troponin 2/2 Non-ischemic myocardial injury.
Her CT chest noted right heart strain. Her follow up Echo was unrevealing.
The patient does not have hypoxia, and her walking pulse ox was within normal limit.
Her bilateral lower extremity ultrasound was negative for deep venous thrombosis.
She was treated initially with heparin drip, and this was transitioned to Eliquis. She has been informed to take Eliquis 10 mg twice daily for 7 days, followed by 5 mg twice daily for 3 months.
As for the rest of her medical problems, they were stable during her hospital stay.
Discharge Plan
-
Patient Disposition: Home (Routine Discharge)
Discharge Diagnosis/Procedures: Acute bilateral submassive pulmonary embolism with right heart strain but without hemodynamic compromise;
Likely provoked pulmomary embolism from prolonged car rides
Condition: Good
Diet: As tolerated
Activity: As tolerated
Driving Restrictions: As prior to admission
Blood Work: CBC with PCP while on Eliquis
Activity Restrictions/Additional Instructions:
Follow up with your PCP for better BP control
Referrals:
Joseph Xie DO [Family Provider] - in less than 1 week
Sisi Jones, DO [Active] - in two to three weeks (PFTs)
Additional Discharge Medication Instructions: Continue Eliquis 10 mg twice daily for 6 more days, followed by 5 mg twice daily for 3 months
Prescriptions:
New
Eliquis 5 mg tablet
10 mg PO BID 6 Days Qty: 24 0RF
Rx Instructions:
10 mg BID for 6 days, then 5 mg BID for 3 months
Eliquis 5 mg tablet
5 mg PO BID 90 Days Qty: 180 0RF
Continued
lisinopril 20 mg Tablet
20 mg PO DAILY
therapeutic multivitamin Tablet
1 tab PO DAILY
aspirin 81 mg Tablet,Chewable
81 mg PO MOWEFR
rosuvastatin 10 mg Tablet
10 mg PO DAILY
Discharge Orders:
Discharge Patient (As Directed); Ordered 08/21/24
Ordered By: Mariah North
Discharge Date and Time
Print Language: MALAY
== END 2024-08-21 14:30 | disposition home or self-care (01) | DRG 176 ==
LOC: 4 WEST ACU 22:12
PROVIDERS: Nurse Practitioner Family; Physician Assistant Medical; ADMITTING PHYSICIAN Internal Medicine; ATTENDING PHYSICIAN Internal Medicine; EMERGENCY PHYSICIAN Emergency Medicine; FAMILY PHYSICIAN Family Medicine; OTHER PHYSICIAN Internal Medicine
DX: I26.99 Other pulmonary embolism without acute cor pulmonale (principal); I5A Non-ischemic myocardial injury (non-traumatic); I10 Essential (primary) hypertension; E78.49 Other hyperlipidemia; M17.12 Unilateral primary osteoarthritis, left knee; I16.0 Hypertensive urgency; E66.3 Overweight; Z68.29 Body mass index [BMI] 29.0-29.9, adult
CPT/HCPCS: 71275; 80048; 80053; 83880; 84484; 85025; 85027; 85730; 86803; 93005; 93306; 93970; 96374; 99291; Q9967

== ENCOUNTER 2024-08-25 12:36 | Emergency (ER) | payer OTHER, SELFPAY ==
[2024-08-25 12:46] VITALS: BP 183/96
[2024-08-25 14:06] VITALS: BP 191/83
--- NOTE | 2024-08-25 14:13 | ED.GENMED ---
History of Present Illness
General
Chief Complaint: Numbness
Source: patient and spouse
Time Seen by Provider: 08/25/24 13:57
History of Present Illness
History of Present Illness:
This patient is a 79-year-old female who was just discharged the hospital 2 days ago after being diagnosed with PE. She is compliant with her medication. She acknowledges that she is very anxious regarding this diagnosis as she has never been ill
before. She says that 'every little thing I feel' worries her. Earlier today at approximately 9 or 10 AM she started to feel a 'sensation' in her left forearm associated with feeling like her left hand was a little cold. She says it felt 'tingly'
but 'not numb'. She did not note color change, weakness, numbness, swelling, redness, warmth, or other associated complaints. The symptoms have fully resolved. In contrast to triage note, patient denies having any chest pain. She also denies
palpitations, dyspnea, nausea, vomiting, or other complaints. She denies bleeding.
Past History
Past History
ED Past Medical History: HTN, Hypercholesterolemia and Other (PE)
ED Past Surgical History: None
Social History
Tobacco: Former smoker
Alcohol: Occasional
Drug: None
Personal:
Living: with family
Phy Exam
Physical Exam
Physical Exam:
GENERAL: Alert , in no apparent distress
EYE: pupils equal and reactive
NECK: Supple, no significant adenopathy.
ENT: o/p clr, mmm.
CARDIAC: Regular rate and rhythm .
LUNGS: Clear breath sounds bilaterally, no acute respiratory distress, no wheezes/rales/rhonchi
ABDOMEN: Soft, without focal tenderness, no r/g, no cvat
NEUROLOGICAL: Alert and oriented, no focal neuro deficits
SKIN: Warm and dry, skin intact.
MUSCULOSKELETAL: No edema, well perfused. 2+ rad/ulnr pulkses, FROM, no swelling/redness/warmth/drainage/rash. motor intact. sens intact to light touch.
PSYCH: Normal and appropriate interaction.
Course
Orders/Labs/Results
Orders:
Orders
08/25/24 12:38
EKG [Electrocardiogram (*1)] Urgent
Reason for Study: Fatigue / Weakness
EKG- Treatment ONCE
Vital Signs
Initial and Last Documented VS:
Initial Vital Signs
Temp Pulse Resp BP Pulse Ox
97.7 F 81 16 183/96 99
08/25/24 12:46 08/25/24 12:46 08/25/24 12:46 08/25/24 12:46 08/25/24 12:46
Last Documented Vital Signs
Temp Pulse Resp BP Pulse Ox
97.7 F 81 16 183/96 99
08/25/24 12:46 08/25/24 12:46 08/25/24 12:46 08/25/24 12:46 08/25/24 12:46
*Critical Care Note
Total Time (30-74mins, 75-104mins- exclusive of procedures): Not Applicable
Update Note
Update Note:
Patient presents to the Emergency Department with __tingling and cold feeling
Number and Complexity of Problems Addressed at the Encounter
� Chronic conditions affecting care:
� Acute Exacerbation and/or Progression of Chronic Illness:
� Differential Diagnosis includes:but not limited to vascular insufficiency, anxiety,, infx, etc etc
Amount and/or Complexity of Data to be Reviewed and Analyzed
� I performed an independent evaluation of and my interpretation is:
EKG:nsr, nl, nonspec T wave inversion (unchanged), no acute ischemia
CT:
Xrays:
Laboratory Studies:
Other:
� Review of other/old records reveals: review of ecg and d/x summary from recent h\\ospitalization, ecg unchanged
� Clinical information was obtained by an independent historian:
� Prescriptions/Medications Considered but not given:
� Further testing considered but not performed:
Risk of Complications and/or Morbidity or Mortality of Patient Management
� Social determinants of health affecting care:
� Discussion with other providers (PCP, Hospitalists, Consultants, etc):
� Escalation of care including admission/observation vs risk of discharge considered: Pt declines further testing here once knowing that vitals and ecg unremarkable. D/w her import of f/u and reasons to rted. has appt with pcp
in AM.
ED Attending Note
-
Portions of this chart may have been created with voice recognition software.� Occasional wrong word or��sound alike� substitutions may have occurred due to the inherent limitations of voice recognition software.
Discharge Plan
Departure
Patient Disposition: Home (Routine Discharge)
Date of Disposition: 08/25/24
Time of Disposition: 14:13
Patient with high blood pressure during this ER visit?: Yes
Condition: Good
Discharge Problem:
Tingling
Instructions: BLOOD PRESSURE
Prescriptions:
No Action
lisinopril 20 mg Tablet
20 mg PO DAILY
therapeutic multivitamin Tablet
1 tab PO DAILY
aspirin 81 mg Tablet,Chewable
81 mg PO MOWEFR
rosuvastatin 10 mg Tablet
10 mg PO DAILY
Eliquis 5 mg tablet
10 mg PO BID 6 Days Qty: 24 0RF
Rx Instructions:
10 mg BID for 6 days, then 5 mg BID for 3 months
Eliquis 5 mg tablet
5 mg PO BID 90 Days Qty: 180 0RF
Activity Restrictions/Additional Instructions:
PLEASE SEE YOUR DOCTOR SCHEDULED TOMORROW. TAKE YOUR BLOOD THINNING MEDICATION DIRECTED, YOU HAVE BEEN.
IF YOU DEVELOP CHEST PAIN, TROUBLE BREATHING, NAUSEA, DIZZINESS, SWELLING BLEEDING OR OTHER WORRISOME SIGNS, GO TO THE ER IMMEDIATELY!
Interventions
Interventions:
*Risk Screen - Suicide Last Done: 08/25/24 12:46
*General Assessment Last Done: 08/25/24 12:46
*Neglect/Abuse Screening Last Done: 08/25/24 12:46
*ED COVID-19 Vaccine History Last Done: 08/25/24 12:46
Discharge Date and Time
Print Language: [email or web address]
== END 2024-08-25 14:57 | disposition home or self-care (01) ==
LOC: EMR 12:36
PROVIDERS: EMERGENCY PHYSICIAN Emergency Medicine; FAMILY PHYSICIAN Family Medicine
DX: R20.2 Paresthesia of skin (principal); I10 Essential (primary) hypertension; E78.00 Pure hypercholesterolemia, unspecified; Z87.891 Personal history of nicotine dependence
CPT/HCPCS: 99283; 93005

== ENCOUNTER → 2024-10-23 08:41 | Outpatient (REF) | payer OTHER, SELFPAY | LOC: HWRAD 08:41 | PROVIDERS: ATTENDING PHYSICIAN Obstetrics & Gynecology; FAMILY PHYSICIAN Family Medicine | DX: Z78.0 Asymptomatic menopausal state (principal) | CPT/HCPCS: 77080 ==

== ENCOUNTER → 2024-10-24 07:16 | Outpatient (REF) | payer OTHER, SELFPAY | LOC: RAD 07:16 | PROVIDERS: ATTENDING PHYSICIAN Nurse Practitioner Adult Health; FAMILY PHYSICIAN Family Medicine | DX: Z86.711 Personal history of pulmonary embolism (principal) | CPT/HCPCS: 71275; Q9967 ==

== ENCOUNTER → 2024-11-12 08:05 | Outpatient (REF) | payer OTHER, SELFPAY | LOC: RAD 08:05 | PROVIDERS: ATTENDING PHYSICIAN Family Medicine | DX: E06.9 Thyroiditis, unspecified (principal); Z68.27 Body mass index [BMI] 27.0-27.9, adult | CPT/HCPCS: 76536 ==

== ENCOUNTER → 2024-12-04 07:12 | Outpatient (REF) | payer OTHER, SELFPAY ==
[2024-12-04 07:52] VITALS: BP 191/83; BP_SYST 74
== END ==
LOC: RADI 07:12
PROVIDERS: ATTENDING PHYSICIAN Otolaryngology; FAMILY PHYSICIAN Family Medicine
DX: E04.2 Nontoxic multinodular goiter (principal)
CPT/HCPCS: 88173; 10005; 10006

== ENCOUNTER → 2024-12-10 07:10 | Outpatient (REF) | payer OTHER, SELFPAY | LOC: RCS 07:10 | PROVIDERS: ATTENDING PHYSICIAN Internal Medicine; FAMILY PHYSICIAN Family Medicine | DX: I10 Essential (primary) hypertension (principal); R07.9 Chest pain, unspecified; R94.31 Abnormal electrocardiogram [ECG] [EKG] | CPT/HCPCS: 78452; 93017; A9500; J2785 ==

== ENCOUNTER → 2025-04-04 09:45 | Outpatient (REF) | payer OTHER, SELFPAY | LOC: DHVS 09:45 | PROVIDERS: ATTENDING PHYSICIAN Family Medicine | DX: I87.2 Venous insufficiency (chronic) (peripheral) (principal) | CPT/HCPCS: 93970 ==